=== PATIENT | female | born 1965 | race Caucasian/White ===

== ENCOUNTER 2018-12-01 06:42 | Day surgery (SDC) | payer BC ==
[~2018-12-01] VITALS: Ht 175.3 cm; Wt 71.7 kg
[2018-12-01 07:28] VITALS: Ht 175.3 cm; Wt 71.7 kg
[2018-12-01] MEDS ORDERED: AMLO-147 PO (07:47)
[2018-12-01] MEDS ORDERED: BENA5TAB33 PO (07:47)
[2018-12-01] MEDS ORDERED: IBUP-1545 PO (07:47)
[2018-12-01] MEDS ORDERED: FAMO20TA18 PO (07:47)
[2018-12-01 07:51] VITALS: BP 131/87; PULSE 58; RESP 26
[2018-12-01] MEDS ORDERED: MIDAZOLAM 1 MG/ML 2 ML INJ ONE ×3 (09:41)
[2018-12-01] MEDS ORDERED: FENTAnyl 50 MCG/ML VIAL ONE (09:41)
[2018-12-01 10:03] VITALS: BP 119/86; PULSE 56; RESP 20
== END 2018-12-01 11:38 | disposition home or self-care (01) ==
LOC: GIL 06:42
PROVIDERS: ATTEND Internal Medicine Gastroenterology
DX: Z12.11 Encounter for screening for malignant neoplasm of colon (principal); D12.4 Benign neoplasm of descending colon
CPT/HCPCS: 45380; 88305; J2250; J3010; Z7610